=== PATIENT | male | born 1970 | race Caucasian/White ===

== ENCOUNTER 2020-07-26 22:32 | Emergency (ER) | payer SELFPAY ==
[~2020-07-26] VITALS: Ht 177.8 cm; Wt 99.8 kg
[2020-07-26 22:40] VITALS: BP_SYST 113
[2020-07-26] MEDS ORDERED: PANTOPRAZOLE SODIUM 40 MG TAB ONE (23:39)
[2020-07-26] MEDS ORDERED: PANTOPRAZOLE SODIUM 40 MG TAB PO ONE (23:45)
[2020-07-27] MEDS ORDERED: MORPHINE 4 MG INJ. 4 MG/ML VIAL IM ONE (01:30)
[2020-07-27] MEDS ORDERED: MORPHINE 4 MG INJ. 4 MG/ML VIAL ONE (01:40)
[2020-07-27 01:59] LABS: BASOPHILS # (AUTO) 0.1 K/uL (0.0-0.2); BASOPHILS % (AUTO) 0.7 % (0.0-2.0); EOSINOPHILS # (AUTO) 0.5 K/uL (0.0-0.4); EOSINOPHILS % (AUTO) 6.3 % (0.0-4.0); HEMATOCRIT 39.7 % (36-54); HEMOGLOBIN 13.3 g/dL (14.0-18.0); LYMPHOCYTES # (AUTO) 3.2 K/uL (1.0-5.5); LYMPHOCYTES % (AUTO) 37.3 % (20.5-51.5); MEAN CORPUSCULAR HEMOGLOBIN 32 pg (27-31); MEAN CORPUSCULAR HGB CONC 34 % (32-36); MEAN CORPUSCULAR VOLUME 94 fL (79.0-98.0); MONOCYTES # (AUTO) 0.9 K/uL (0.0-1.0); MONOCYTES % (AUTO) 10.2 % (1.7-9.3); NEUTROPHILS % (AUTO) 45.5 % (40.0-70.0); PLATELET COUNT (AUTO) 123 K/uL (130-430); RED BLOOD CELL COUNT(AUTO) 4.22 MIL/uL (4.2-6.2); WHITE BLOOD COUNT (AUTO) 8.7 K/uL (4.8-10.8)
[2020-07-27 02:02] LABS: ANION GAP 9 (5-15); CALCIUM 8.2 mg/dL (8.4-11.0); CHLORIDE 106 mmol/L (98-107); CREATININE 0.93 mg/dL (0.55-1.30); GLUCOSE 109 mg/dL (70-99); POTASSIUM 3.6 mmol/L (3.5-5.1); SODIUM SERUM 141 mmol/L (136-145); UREA NITROGEN, BLOOD 21 mg/dL (8-21)
[2020-07-27 02:06] LABS: GFR AFRICAN AMERICAN 110 mL/min (>90)
[2020-07-27 02:10] LABS: ALANINE AMINOTRANSFERASE 38 U/L (12-78); ALBUMIN 3.2 g/dL (3.4-4.8); ASPARTATE AMINOTRANSFERASE 16 U/L (10-37); TOTAL BILIRUBIN 0.3 mg/dL (0.0-1.0)
[2020-07-27 03:50] VITALS: BP_SYST 126
== END 2020-07-27 03:49 | disposition home or self-care (01) ==
LOC: SED 22:32
DX: R51.9 Headache, unspecified (principal); R07.9 Chest pain, unspecified
CPT/HCPCS: 36415; 70450; 76376; 80053; 84484; 85025; 93005; 96372; 99285; J2270